=== PATIENT | male | born 1995 | race Caucasian/White ===

== ENCOUNTER 2022-03-09 03:28 | Emergency (ER) | payer SELFPAY ==
[2022-03-09 03:32] VITALS: BP 177/111; PULSE 112; RESP 17; TEMP 36.9; O2SAT 96; BMI 34.4
--- NOTE | 2022-03-09 03:34 | CTR_ITS ---
PROCEDURE INFORMATION: Exam: CT Abdomen And Pelvis Without Contrast Exam date and time: 03/09/2022 3:56 AM Age: 26 years old Clinical indication: Abdominal pain; Patient HX: C/O left flank pain; Additional info: L abd pain TECHNIQUE: Imaging protocol: Computed tomography of the abdomen and pelvis without contrast. Radiation optimization: All CT scans at this facility use at least one of these dose optimization techniques: automated exposure control; mA and/or kV adjustment per patient size (includes targeted exams where dose is matched to clinical indication); or iterative reconstruction. COMPARISON: No relevant prior studies available. RADIATION DOSE METRICS: Total DLP (mGy-cm): 1812.46 FINDINGS: Liver: Normal. No mass. Gallbladder and bile ducts: Normal. No calcified stones. No ductal dilation. Pancreas: Normal. No ductal dilation. Spleen: Normal. No splenomegaly. Adrenal glands: Normal. No mass. Kidneys and ureters: 3 mm stone within distal left ureter visible on axial image 144. Mild severity left collecting system hydroureteronephrosis. Mild left renal parenchyma edema. Stomach and bowel: Unremarkable. No obstruction. No mucosal thickening. Appendix: No evidence of appendicitis. Intraperitoneal space: Unremarkable. No free air. No significant fluid collection. Vasculature: Unremarkable. No abdominal aortic aneurysm. Lymph nodes: Unremarkable. No enlarged lymph nodes. Urinary bladder: Unremarkable as visualized. Reproductive: Unremarkable as visualized. Bones/joints: Unremarkable. No acute fracture. Soft tissues: Unremarkable. CT/CT kidney stone [id number] IMPRESSION: Obstructive uropathy changes of left collecting system secondary to distal ureterolithiasis.
--- NOTE | 2022-03-09 03:35 | W.ED.ABDPA2 ---
HPI - Abdominal Pain General: Chief Complaint: Abdominal Pain Stated Complaint: abd pain Time Seen by Provider: 03/09/22 03:32 Source: patient Mode of arrival: ambulatory Limitations: no limitations History of Present Illness: 26-year-old male who states that roughly 2 hours ago who woke up with sudden sharp severe left-sided abdominal pain that radiates to his groin. States pain is currently a 9 out of 10 is causing nausea and vomiting. He denies any fever denies any dysuria. Denies any history of any abdominal issues denies any history of kidney stone. He denies any testicle pain. Associated Symptoms: Reports nausea and vomiting; Denies chills, dysuria and fever(s) Review of Systems Const: Denies: fever(s), chills, body aches or change in appetite Eyes: Denies: blurry vision or eye discomfort ENMT: Denies: throat pain or dental pain Card: Denies: chest pain Resp: Denies: dyspnea GI: Reports: abdominal pain, nausea and vomiting : Denies: dysuria Musc: Denies: neck pain or back pain Skin/Breast: Denies: rash Neuro: Denies: headache(s) Psych: Denies: depression Gerber/Lymph: Denies: easy bruising All/Imm: Denies: urticaria PFSH ED PFSH: Medical History (Updated 03/09/22 @ 04:09 by Roe Harmon MD) No pertinent past medical history Social History (Updated 03/09/22 @ 03:35 by Roe Harmon MD) Smoking and tobacco status: current every day smoker Physical Exam Const: COMMON NORMALS: no acute distress, patient oriented x3 and healthy appearing HENMT: COMMON NORMALS: normocephalic and atraumatic HEAD & SCALP: normocephalic and atraumatic Eye: COMMON NORMALS: Equal, round and reactive pupils present and EOMs intact bilaterally PUPIL: Yes Equal, round and reactive pupils present Neck/C-Spine: COMMON NORMALS: full ROM and supple Chest: COMMONS NORMALS: normal inspection of the chest and normal palpation of entire chest wall Resp: COMMON NORMALS: normal respiratory effort, No retractions, No use of accessory muscles and clear to auscultation bilaterally AUSCULTATION: clear to auscultation bilaterally Cardio: COMMON NORMALS: regular rate, regular rhythm and No murmurs present (Cardio) RATE: regular rate RHYTHM: regular rhythm GI: COMMON NORMALS: Normal to inspection, nondistended, normoactive bowel sounds present, Soft to palpation, non-tender and no masses PALPATION: Yes Soft to palpation Extremity: COMMON NORMALS: normal to inspection and full ROM Neuro: COMMON NORMALS: patient oriented x3, moves all extremities and no focal motor deficits Psych: COMMON NORMALS: mental status grossly normal, Normal thought process present and cooperative THOUGHT PROCESS: Normal thought process present Skin: COMMON NORMALS: no rashes or lesions noted and no wounds GENERAL SKIN EXAM: no rashes or lesions noted Course Vital Signs: Vital signs: Vital Signs Temperature 98.4 F 03/09/22 03:32 Pulse Rate 112 H 03/09/22 03:32 Respiratory Rate 17 03/09/22 03:32 Blood Pressure 177/111 03/09/22 03:32 Pulse Oximetry 96 03/09/22 03:32 MDM - Abdominal Pain Medical Decision Making Patient presents with left-sided kidney stone likely causing his pain. Stone is small and distal and should likely be able to pass at home. We will place him on pain meds and get him follow-up with urology he is return if worsening he understands agrees to plan. Lab Data : 03/09/22 03:43 03/09/22 03:43 Labs/Radiology: Radiology Impressions Abdomen/Pelvis CT 03/09/22 03:34 IMPRESSION: Obstructive uropathy changes of left collecting system secondary to distal ureterolithiasis. Laboratory Results WBC 9.6 10^3/uL (4.0-10.0) 03/09/22 03:43 RBC 5.56 10^6/uL (4.1-5.3) H 03/09/22 03:43 Hgb 17.5 g/dL (11.7-16.6) H 03/09/22 03:43 Hct 47.6 % (42.0-52.0) 03/09/22 03:43 MCV 85.6 fl (80-94) 03/09/22 03:43 MCH 31.5 pg (28.0-34.0) 03/09/22 03:43 MCHC 36.8 g/dL (30.0-36.0) H 03/09/22 03:43 RDW 11.8 % (12.1-15.1) L 03/09/22 03:43 Plt Count 296 10^3/cmm (130-400) 03/09/22 03:43 MPV 10.4 fL (7.4-10.4) 03/09/22 03:43 Neut % (Auto) 44.8 % 03/09/22 03:43 Lymph % (Auto) 43.7 % 03/09/22 03:43 [place] % (Auto) 7.9 % 03/09/22 03:43 Eos % (Auto) 2.0 % 03/09/22 03:43 Baso % (Auto) 1.1 % 03/09/22 03:43 Neut # (Auto) 4.32 10^3/uL (1.8-7.7) 03/09/22 03:43 Lymph # (Auto) 4.2 10^3/uL (0.8-4.8) 03/09/22 03:43 [place] # (Auto) 0.8 10^3/uL (0.2-0.9) 03/09/22 03:43 Eos # (Auto) 0.2 10^3/uL (0.0-0.8) 03/09/22 03:43 Baso # (Auto) 0.1 10^3/uL (0.0-0.1) 03/09/22 03:43 Nucleated RBC % (auto) 0 % 03/09/22 03:43 Nucleated RBCs # 0.0 /100WBC 03/09/22 03:43 Sodium 138 mmol/L (136-145) 03/09/22 03:43 Potassium 3.8 mmol/L (3.5-5.1) 03/09/22 03:43 Chloride 100 mmol/L (98-107) 03/09/22 03:43 Carbon Dioxide 18 mmol/L (22-29) L 03/09/22 03:43 Anion Gap 23.8 (5-19) H 03/09/22 03:43 BUN 14 mg/dL (6-20) 03/09/22 03:43 Creatinine 1.1 mg/dL (0.7-1.2) 03/09/22 03:43 GFR Calculation 80.3 mL/min (90-130) L 03/09/22 03:43 Glucose 145 mg/dL (65-115) H 03/09/22 03:43 Calculated Osmolality 289 mOsm/kg (285-295) 03/09/22 03:43 Calcium 9.4 mg/dL (8.5-10.5) 03/09/22 03:43 Total Bilirubin 0.5 mg/dL (0.15-1.2) 03/09/22 03:43 AST 16 U/L (0-40) 03/09/22 03:43 ALT 25 U/L (0-41) 03/09/22 03:43 Alkaline Phosphatase 117 IU/L (40-130) 03/09/22 03:43 Total Protein 7.6 g/dL (6.6-8.7) 03/09/22 03:43 Albumin 4.5 g/dL (3.5-5.2) 03/09/22 03:43 Globulin 3.1 g/dL (1.3-4.6) 03/09/22 03:43 Lipase 12 U/L (13-60) L 03/09/22 03:43 Urine Color Yellow (Yellow) 03/09/22 04:14 Urine Appearance Clear (CLEAR) 03/09/22 04:14 Urine pH 5 (5-7) 03/09/22 04:14 Ur Specific [place] 1.030 (1.005-1.030) 03/09/22 04:14 Urine Protein Trace (Negative) 03/09/22 04:14 Urine Glucose (UA) Norm (Normal) 03/09/22 04:14 Urine Ketones 1+ (Negative) H 03/09/22 04:14 Urine Blood 3+ (Negative) H 03/09/22 04:14 Urine Nitrate Negative (Negative) 03/09/22 04:14 Urine Bilirubin 1+ (Negative) H 03/09/22 04:14 Urine Urobilinogen 4 mg/dL (Negative) H 03/09/22 04:14 Ur Leukocyte Esterase Negative (Negative) 03/09/22 04:14 Urine RBC 50-80 /hpf (0-2) H 03/09/22 04:14 Urine WBC 0-4 /hpf (0-5) H 03/09/22 04:14 Ur Squamous Epith Cells 0-4 /hpf (0-5) H 03/09/22 04:14 Calcium Oxalate Crystal 0-4 /hpf H 03/09/22 04:14 Amorphous Sediment Not Reportable 03/09/22 04:14 Urine Bacteria Trace /hpf (NONE) 03/09/22 04:14 Urine Mucus Trace /hpf 03/09/22 04:14 Discharge Plan Discharge Patient Disposition: Home Clinical Impression: Kidney stone Prescriptions: New hydrocodone-acetaminophen 5-325 mg tablet 1 tab PO Q6H PRN (Reason: pain) Qty: 14 0RF ondansetron 4 mg tablet,disintegrating 4 mg PO Q6H PRN (Reason: nausea and vomiting) Qty: 14 0RF Discharge Orders: Discharge ED (Routine); Ordered 03/09/22 Ordered By: oRe Harmon Referrals: Moises Segal MD [Physician] - 1-3 days Discharge Diet: Advance as tolerated Discharge Activity: Resume usual activity Patient Instructions: Kidney Stones (ED), Opioid Safety Coding Level of Care Code ED Regulatory Product Manager for [employer] Fwd Exam Comprehensive
[2022-03-09 03:46] LABS: Basophils # 0.1 10^3/uL (0.0-0.1); Basophils % 1.1 %; Eosinophils # 0.2 10^3/uL (0.0-0.8); Hematocrit 47.6 % (42.0-52.0); Hemoglobin 17.5 g/dL (11.7-16.6); Lymphocytes # 4.2 10^3/uL (0.8-4.8); Lymphocytes % 43.7 %; Mean Corpuscular HGB Conc 36.8 g/dL (30.0-36.0); Mean Corpuscular Hemoglobin 31.5 pg (28.0-34.0); Mean Corpuscular Volume 85.6 fl (80-94); Mean Platelet Volume 10.4 fL (7.4-10.4); Monocytes # 0.8 10^3/uL (0.2-0.9); Monocytes % 7.9 %; Neutrophils # 4.32 10^3/uL (1.8-7.7); Neutrophils % 44.8 %; Nucleated Red Blood Cells % 0 %; Platelet Count 296 10^3/cmm (130-400); Red Blood Count 5.56 10^6/uL (4.1-5.3); Red Cell Distribution Width 11.8 % (12.1-15.1); White Blood Count 9.6 10^3/uL (4.0-10.0)
[2022-03-09] MEDS: ondansetron 2 mg/ML SDV 2 mL 4 MG IVP (03:48)
[2022-03-09] MEDS: HYDROmorphone 1 mg/mL INJ 1 mL IVP (03:48)
[2022-03-09] MEDS: sodium chloride 0.9% 1,000 ML 999 ML IV (03:50)
[2022-03-09 04:12] LABS: Alanine Aminotransferase 25 U/L (0-41); Albumin Level 4.5 g/dL (3.5-5.2); Alkaline Phosphatase 117 IU/L (40-130); Anion Gap 23.8 (5-19); Aspartate Amino Transferase 16 U/L (0-40); Blood Urea Nitrogen 14 mg/dL (6-20); Calcium 9.4 mg/dL (8.5-10.5); Carbon Dioxide 18 mmol/L (22-29); Chloride 100 mmol/L (98-107); Globulin 3.1 g/dL (1.3-4.6); Glomerular Filtration Rate 80.3 mL/min (90-130); Glucose 145 mg/dL (65-115); Lipase 12 U/L (13-60); Osmolality Calculated 289 mOsm/kg (285-295); Potassium 3.8 mmol/L (3.5-5.1); Sodium 138 mmol/L (136-145); Total Bilirubin 0.5 mg/dL (0.15-1.2); Total Protein 7.6 g/dL (6.6-8.7)
[2022-03-09] MEDS: ketorolac 30 mg/mL INJ 15 MG IVP (04:22)
[2022-03-09 04:34] LABS: Add Urine Culture? Yes; Add Urine Microscopic? YES; Bacteria Urine TRACE /hpf; Bilirubin Urine 1+ (Negative); Blood Urine 3+ (Negative); Calcium Oxalate Crystals Urine 0-4 /hpf; Glucose Urine UA Norm (Normal); Ketones Urine 1+ (Negative); Leukocyte Esterase Urine Negative (Negative); Mucus Urine TRACE /hpf; Nitrate Urine Negative (Negative); Protein Urine Trace (Negative); RBC Urine 50-80 /hpf (0-2); Squamous Epithelial Cell Urine 0-4 /hpf (0-5); Urine Appearance Clear (CLEAR); Urine Color Yellow (Yellow); Urobilinogen Urine 4 mg/dL (Negative); WBC Urine 0-4 /hpf (0-5); pH Urine 5 (5-7)
--- NOTE | 2022-03-09 04:56 | PC.NURSE ---
Patient sent home with [facility] per MD order.
--- NOTE | 2022-03-14 11:44 | DCPLANNER ---
Addendum entered by Gail Marroquin 04/04/22 11:25: emergency planning and response manager was sent the following message about follow up appointment: Pt. passed stone and does not want an appt. Original Note: emergency planning and response manager had message to schedule a follow up appointment for patient with urology. emergency planning and response manager sent patients information to the front office staff at urology. Patients information will be printed and reviewed. Clinic will call patient with appointment information.
== END 2022-03-09 05:00 | disposition home or self-care (01) ==
PROVIDERS: Emergency Provider Emergency Medicine
DX: N20.0 Calculus of kidney (principal); F17.210 Nicotine dependence, cigarettes, uncomplicated
CPT/HCPCS: 74176; 80053; 81001; 83690; 85025; 87086; 96361; 96374; 96375; 99284; J1170; J1885; J2405; J7030